=== PATIENT | male | born 1965 | race African-American/Black ===

== ENCOUNTER 2017-05-02 13:43 | Emergency (ER) | payer OTHER ==
[~2017-05-02] VITALS: Ht 180.3 cm; Wt 79.4 kg
--- NOTE | ~2017-05-02 | CT2 ---
[facility] A Service of [facility] RADIOLOGY TEXT RESULTS PATIENT: TORRES SORIANO LOCATION: [facility] : [birth year] UNIT #: [id number] AGE: [address]: Luther Quick MD SEX: M ORDER DR: [id number] [facility] [address] [place], [place] [address] [id number] MR#: [id number] Acc #: [id number] NAME: TORRES SORIANO : 1965 SEX: M STUDY DATE/TIME: 05/02/2017 19:16 UNIT: [facility] ROOM: STUDY DESCRIPTION: CT Abd and Pelv W Cont Attending Physician: Sameer Quick M.D. Ordering Physician: Ed Doctor [id number] [facility] Primary Care Physician: Primary Care Physician No MEDICAL IMAGING REPORT This report is preliminary unless electronic signature is present EXAM CT abdomen and pelvis with contrast, 05/02/2017 19:16 hours HISTORY 51-year-old man complaining of left flank pain radiating to front and back today. History of diverticulitis. COMPARISON CT abdomen and pelvis, 05/28/[address] images were obtained from the lung bases through the pubic symphysis with oral and intravenous contrast. Sagittal and coronal reconstructions were performed. Contrast was Isovue-370 100 mL IV. Total exam DLP 8,691 mGy-cm. This CT exam was performed with one or more of the following radiation dose reduction techniques: automatic exposure control, adjustment of mA and/or kV according to patient size, and iterative reconstruction. FINDINGS Images through the lung bases are clear. There are no effusions. Images through the abdomen demonstrate mild diffuse low attenuation of the liver consistent with steatosis. No focal liver lesion. The spleen, pancreas, gallbladder, bile ducts and adrenal glands are normal. The kidneys enhance normally. There is no mass or stone. No obstruction. No ureteral calculus. The abdominal aorta is normal in caliber with atherosclerotic calcifications present. The stomach is fairly well opacified with contrast and well distended and [facility] A Service [facility] RADIOLOGY TEXT RESULTS PATIENT: TORRES SORIANO LOCATION: [facility] : 69 UNIT #: [id number] AGE: [address]: Luther Quick MD SEX: M ORDER DR: appears normal. The small bowel is moderately well opacified and appears unremarkable. The appendix is normal. The colon is unopacified throughout. There are colonic diverticula in the distal descending colon and sigmoid colon but there is no evidence of wall thickening or acute inflammation. Previous inflammatory changes in the mid descending colon and left pericolic gutter seen on 05/28/[address] pelvis is negative. There are pelvic phleboliths and calcifications of the vas deferens bilaterally. No hernia is seen. IMPRESSION 1. There is diverticulosis of the descending colon and sigmoid colon with no CT evidence of diverticulitis. Previous inflammatory changes at the mid sigmoid colon on 05/28/2014 have resolved. 2. Diffuse hepatic steatosis with no focal liver lesion. 3. The kidneys, ureters and bladder appear normal. Dictated by... Priscila Cabrera M.D. THIS IS AN ELECTRONICALLY VERIFIED REPORT Priscila Cabrera M.D. at 05/03/2017 2:35 PM Alfredo TD: 05/03/2017 10:24 JOB #: [id number] MEDICAL IMAGING REPORT Page 1 of 1 COPY
[~2017-05-02 13:43] MED LIST: AUGMENTIN PO; CLONIDINE HCL0.1 MG PO; HYDROCHLOROTHIA25 MG PO; METAMUCIL1 PKT PO; NORVASC PO; NORVASC10 MG PO; PERCOCET 5-3251 TAB PO
[2017-05-02 14:40] LABS: BASOPHIL# 0.1 X10e3 (0-0.3); BASOPHIL% 0.7 % (0-2.5); EOSINOPHIL% 0.2 % (0.0-7.0); HEMATOCRIT 52.1 % (38.0-50.0); LYMPHOCYTE# 2.2 X10e3 (1.0-3.5); LYMPHOCYTE% 18.8 % (17.0-45.0); MEAN CELL VOLUME 90.6 FL (83-96); MEAN CORPUSCULAR HEMOGLOBIN 31.3 PG (28-34); MEAN CORPUSCULAR HGB CONC 34.6 g/dL (30-36); MEAN PLATELET VOLUME 7.4 FL (6.5-11.5); MONOCYTE# 0.9 X10e3 (0-1.0); MONOCYTE% 8.2 % (3.0-12.0); NEUTROPHIL# 8.3 X10e3 (1.5-7.1); NEUTROPHIL% 72.1 % (40-75); PLATELET COUNT 165 X10e3 (140-420); RED BLOOD COUNT 5.76 X10e (3.90-5.60); RED CELL DISTRIBUTION WIDTH 14.1 % (11.0-15.5); WHITE BLOOD COUNT 11.5 X10e3 (4.0-10.5)
[2017-05-02 14:46] LABS: DIFF IND NO
[2017-05-02 15:09] LABS: ALBUMIN SERUM 4.1 g/dL (3.5-5.0); BILIRUBIN, DIRECT 0.1 mg/dL (0.0-0.2); BILIRUBIN,INDIRECT 0.9 mg/dL (0.0-0.9); BUN/CREATININE RATIO 12.22; CALCIUM SERUM 8.8 mg/dL (8.4-10.2); CREATININE SERUM 0.9 mg/dL (0.6-1.4); GLOM FILT RATE Estimated 115.8 mL/min (>60); POTASSIUM 4.3 mmol/L (3.5-5.1); PROTEIN TOTAL SERUM 7.5 g/dL (6.0-8.3)
[2017-05-02 16:52] LABS: URINE SOURCE CLEAN CATCH
[2017-05-02 17:00] LABS: URINE APPEARANCE CLEAR; URINE BILIRUBIN NEG (NEG); URINE BLOOD 1+ (NEG); URINE COLOR YELLOW; URINE GLUCOSE NEG (NEG); URINE KETONE NEG (NEG); URINE LEUKOCYTE ESTERASE NEG (NEG); URINE NITRATE NEG (NEG); URINE PROTEIN NEG (NEG); URINE SPECIFIC GRAVITY 1.019 (1.003-1.035); URINE UROBILINOGEN 0.2 MG/DL (NEG)
[2017-05-02 17:05] LABS: U HYALINE CASTS AUWI 0-2 /[LPF]; URBCS1 AUWI 0-2 /[HPF] (0-2); URINE BACTERIA AUWI NEG (NEGATIVE); URINE SQUAMOUS EPITHELIAL CELL NONE SEEN /[HPF]; UWBCS1 AUWI 0-2 (0-5)
[2017-05-02 17:06] LABS: CULTURE INDICATED? NO
== END 2017-05-02 21:45 | disposition home or self-care (01) ==
LOC: CED 13:43
DX: R10.12 Left upper quadrant pain (principal); R10.32 Left lower quadrant pain; I10 Essential (primary) hypertension; F17.210 Nicotine dependence, cigarettes, uncomplicated; Z79.899 Other long term (current) drug therapy
CPT/HCPCS: 36415; 74177; 80048; 80076; 81003; 83690; 85025; 96361; 96374; 96375; 99284; J2270; J2405; Q9967